=== PATIENT | female | born 1950 | race Two or more races ===

== ENCOUNTER 2018-02-09 08:18 | Outpatient (CLI) | payer OTHER | END 2018-02-09 08:20 | disposition home or self-care (01) | LOC: LAB 08:18 | DX: I11.9 Hypertensive heart disease without heart failure (principal); E78.2 Mixed hyperlipidemia; Z13.29 Encounter for screening for other suspected endocrine disorder ==

== ENCOUNTER 2018-10-13 12:41 | Outpatient (CLI) | payer OTHER | END 2018-10-13 12:51 | disposition home or self-care (01) | LOC: TOM 12:41 | DX: D35.00 Benign neoplasm of unspecified adrenal gland (principal) ==

== ENCOUNTER 2019-05-12 09:31 | Outpatient (CLI) | payer OTHER | END 2019-05-12 09:37 | disposition home or self-care (01) | LOC: LAB 09:31 | DX: D64.89 Other specified anemias (principal); E78.00 Pure hypercholesterolemia, unspecified; I10 Essential (primary) hypertension; N39.8 Other specified disorders of urinary system; E55.9 Vitamin D deficiency, unspecified; E78.2 Mixed hyperlipidemia ==

== ENCOUNTER 2019-05-19 11:17 | Outpatient (CLI) | payer OTHER | END 2019-05-19 11:33 | disposition home or self-care (01) | LOC: NUCLEAR 11:17 | DX: M81.0 Age-related osteoporosis without current pathological fracture (principal) ==

== ENCOUNTER 2021-01-25 10:01 | Outpatient (CLI) | payer OTHER | END 2021-01-25 10:10 | disposition home or self-care (01) | LOC: RAD 10:01 | DX: M25.512 Pain in left shoulder (principal) ==

== ENCOUNTER 2021-06-12 12:36 | Outpatient (CLI) | payer OTHER | END 2021-06-12 12:49 | disposition home or self-care (01) | LOC: NUCLEAR 12:36 | PROVIDERS: ATTEND Specialist | DX: M81.0 Age-related osteoporosis without current pathological fracture (principal) ==

== ENCOUNTER 2022-08-08 09:12 | Outpatient (CLI) | payer OTHER | END 2022-08-08 09:17 | disposition home or self-care (01) | LOC: LAB 09:12 | DX: D68.9 Coagulation defect, unspecified (principal); Z01.812 Encounter for preprocedural laboratory examination; I11.9 Hypertensive heart disease without heart failure; E78.00 Pure hypercholesterolemia, unspecified; Z01.811 Encounter for preprocedural respiratory examination ==

== ENCOUNTER 2022-11-07 12:32 | Inpatient (IN) | payer OTHER ==
[~2022-11-07] VITALS: Ht 157.5 cm; Wt 77.1 kg
[2022-11-07] MEDS ORDERED: CARDURA1 MG PO (13:27)
[2022-11-07] MEDS ORDERED: CARDIZEM30 MG PO (13:27)
[2022-11-07] MEDS ORDERED: CRESTOR5 MG PO (13:27)
[2022-11-07] MEDS ORDERED: ADULT LOW DOSE81 M1 PO (13:27)
[2022-11-07] MEDS ORDERED: XYZAL5 MG PO (13:28)
[2022-11-07] MEDS ORDERED: ZETIA10 MG PO (13:28)
== END 2022-11-09 12:05 | disposition home or self-care (01) | DRG 312 ==
LOC: ER 12:32 → SURG 20:35 → SURH 22:41
PROVIDERS: ADMIT Internal Medicine; ATTEND Internal Medicine
PROC: B24BYZZ Ultrasonography of Heart with Aorta using Other Contrast (ICD-10-PCS; principal; 2022-11-07)
PROC: B020ZZZ Computerized Tomography (CT Scan) of Brain (ICD-10-PCS; 2022-11-07)
PROC: B030Y0Z Magnetic Resonance Imaging (MRI) of Brain using Other Contrast, Unenhanced and Enhanced (ICD-10-PCS; 2022-11-07)
DX: R55 Syncope and collapse (principal)
CPT/HCPCS: 70552

== ENCOUNTER 2023-02-23 09:40 | Outpatient (CLI) | payer OTHER ==
[~2023-02-23 09:40] MED LIST: ADULT LOW DOSE81 M1 PO; CARDIZEM30 MG PO; CARDURA1 MG PO; CRESTOR5 MG PO; XYZAL5 MG PO; ZETIA10 MG PO
== END 2023-02-23 09:44 | disposition home or self-care (01) ==
LOC: NUCLEAR 09:40
PROVIDERS: ATTEND Psychiatry & Neurology Neurology
DX: G45.8 Other transient cerebral ischemic attacks and related syndromes (principal); G45.4 Transient global amnesia

== ENCOUNTER 2023-09-21 10:31 | Outpatient (CLI) | payer OTHER | END 2023-09-21 10:35 | disposition home or self-care (01) | LOC: MAMO-SONO 10:31 | PROVIDERS: ATTEND Specialist | DX: N60.11 Diffuse cystic mastopathy of right breast (principal); N60.12 Diffuse cystic mastopathy of left breast; Z12.31 Encounter for screening mammogram for malignant neoplasm of breast ==

== ENCOUNTER 2024-11-22 13:07 | Outpatient (CLI) | payer OTHER | END 2024-11-22 13:08 | disposition home or self-care (01) | LOC: NUCLEAR 13:07 | PROVIDERS: ATTEND Specialist | DX: M81.0 Age-related osteoporosis without current pathological fracture (principal) ==

== ENCOUNTER 2025-01-19 08:41 | Outpatient (CLI) | payer OTHER | END 2025-01-19 08:48 | disposition home or self-care (01) | LOC: MAMO-SONO 08:41 | PROVIDERS: ATTEND Specialist | DX: N60.11 Diffuse cystic mastopathy of right breast (principal); N60.12 Diffuse cystic mastopathy of left breast; Z12.31 Encounter for screening mammogram for malignant neoplasm of breast ==